=== PATIENT | male | born 1960 | race Caucasian/White ===

== ENCOUNTER 2020-03-22 14:06 | Emergency (ER) | payer OTHER ==
--- NOTE | 2020-03-22 15:18 | RAD REPORT ---
EXAM DESCRIPTION: CT - Head C Spine Mpr Wo Con - 03/22/2020 3:03 pm CLINICAL HISTORY: Head and neck injury status post fall. Head and neck pain COMPARISON: None. TECHNIQUE: Computed axial tomography of the head and cervical spine was obtained. Sagittal and coronal reconstruction was performed. All CT scans are performed using dose optimization technique as appropriate and may include automated exposure control or mA/KV adjustment according to patient size. FINDINGS: An intracranial bleed is not seen. The ventricles are normal in caliber. An extra-axial fl uid collection is not noted.Fluid within the visualized sinuses and mastoids is not seen A cervical fracture is not visualized. No dislocation is noted. Spondylosis involves the cervical spi ne IMPRESSION: No acute intracranial abnormality is seen. A cervical fracture is not visualized. If the patient continues to have symptoms to suggest intracra nial /spinal cord pathology then MRI would be recommended
--- NOTE | 2020-03-22 16:54 | RAD REPORT ---
EXAM DESCRIPTION: RAD - Foot Right 3 View - 03/22/2020 4:47 pm CLINICAL HISTORY: Right foot pain FINDINGS: No fracture or dislocation is seen Soft tissue swelling first digit. Moderate narrowing first MTP joint with small osteophytes. Erosions are not seen.
--- NOTE | 2020-03-22 17:03 | ER ---
Nurse's Notes [facility] Name: Fransisco Carcamo Age: 59 yrs Sex: Male : 1960 Arrival Date: 03/22/2020 Time: 14:10 Bed 23 Private MD: Diagnosis: Fall on same level from slipping, tripping and stumbling;Contusion of great toe without damage to nail;Superficial injury of head Presentation: 03/22 14:39 Chief complaint: Patient states: slipped and fell in the shower on . Pt c/o aa5 neck pain, upper lip pain and R big toe pain. Unknown LOC. Pt denies nausea/vomiting. Coronavirus screen: Client denies travel out of the [place] in the last 14 days. At this time, the client does not indicate any symptoms associated with coronavirus-19. Ebola Screen: Patient negative for fever greater than or equal to 101.5 degrees Fahrenheit, and additional compatible Ebola Virus Disease symptoms. Initial Sepsis Screen: Does the patient meet any 2 criteria? No. Patient's initial sepsis screen is negative. Does the patient have a suspected source of infection? No. Patient's initial sepsis screen is negative. Risk Assessment: Do you want to hurt yourself or someone else? Patient reports no desire to harm self or others. Onset of symptoms was March 2020. 14:39 Method Of Arrival: Ambulatory aa5 14:39 Acuity: ROD 4 aa5 Triage Assessment: 14:40 General: Appears uncomfortable, Behavior is calm, cooperative. Pain: Complains of pain aa5 in right first toe, neck, and upper lip Pain currently is 8 out of 10 on a pain scale. Quality of pain is described as aching, sharp, Is continuous, Aggravated by increased activity, repositioning, Noted to be resistant to movement. EENT: No signs and/or symptoms were reported regarding the EENT system. Neuro: Level of Consciousness is awake, alert, obeys commands, Oriented to person, place, time, situation. Cardiovascular: Patient's skin is warm and dry. Respiratory: Airway is patent Respiratory effort is even, unlabored, Respiratory pattern is regular, symmetrical. GI: No signs and/or symptoms were reported involving the gastrointestinal system. : No signs and/or symptoms were reported regarding the genitourinary system. Derm: Skin is pink, warm \T\ dry. Musculoskeletal: Range of motion: intact in all extremities, Swelling present in right first toe. Historical: - Allergies: 14:43 No Known Allergies; aa5 - PMHx: 14:43 Hypertension; Hyperlipidemia; MS; Coronary Artery spasms; aa5 - PSHx: 14:43 right big toe sx; aa5 - Immunization history:: Adult Immunizations unknown. - Social history:: Smoking status: Patient denies any tobacco usage or history of. Screenin:15 Abuse screen: Denies threats or abuse. Nutritional screening: No deficits noted. aa5 Tuberculosis screening: No symptoms or risk factors identified. Fall Risk Fall in past 12 months (25 points). Total Carr Fall Scale indicates Low Risk Score (25-44 pts). Fall prevention measures have been instituted. Placed close to Nursing Station. Assessment: 16:12 Reassessment: Patient is alert, oriented x 3, equal unlabored respirations, skin aa5 warm/dry/pink. 17:08 Reassessment: Pt now requesting pain medication, STUDIO ASSISTANT was notified. . aa5 17:25 Reassessment: Patient is alert, oriented x 3, equal unlabored respirations, skin aa5 warm/dry/pink. Vital Signs: 14:43 BP 125 / 93; Pulse 98; Resp 18 S; Temp 98.4(O); Pulse Ox 99% on R/A; Weight 136.08 kg aa5 (R); Height 6 ft. 4 in. (193.04 cm) (R); Pain 8/10; 14:43 Body Mass Index 36.52 (136.08 kg, 193.04 cm) aa5 ED Course: 14:10 Patient arrived in ED. ag5 14:39 Arm band placed on. aa5 14:41 Triage completed. aa5 15:03 CT Head C Spine In Process Unspecified. EDMS 15:23 Kendy Salcedo FNP-C is PHCP. snw 15:23 Prateek Cornelius MD is Attending Physician. snw 16:12 Patient has correct armband on for positive identification. Bed in low position. Call aa5 light in reach. Side rails up X 1. 16:20 Regine Hallman, MICHAEL is Primary Nurse. aa5 16:48 Foot Right 3 View XRAY In Process Unspecified. EDMS 17:25 No provider procedures requiring assistance completed. Patient did not have IV access aa5 during this emergency room visit. Administered Medications: 17:10 Drug: TORadol - Ketorolac 30 mg Route: IM; Site: right deltoid; aa5 17:25 Follow up: Response: No adverse reaction aa5 Outcome: 17:03 Discharge ordered by . snw 17:25 Discharged to home via wheelchair, with family. aa5 17:25 Condition: stable 17:25 Discharge instructions given to patient, Instructed on discharge instructions, follow up and referral plans. medication usage, Demonstrated understanding of instructions, follow-up care, medications, Prescriptions given X 2. 17:30 Patient left the ED. aa5 Signatures: Dispatcher [employer] EDKendy Pandey FNP-C PSYCHOLOGY PHYSICIAN-Regine Coughlin RN RN aa5 Nahun Adams RN RN ja1 Luis Schreiber ag5 Corrections: (The following items were deleted from the chart) 14:44 14:43 BP 125 / 93; Resp 18bpm; Spontaneous; aa5 aa5 14:44 14:43 BP 125 / 93; Pulse 98bpm; Resp 18bpm; Spontaneous; Pulse Ox 99% RA; Temp 98.4F aa5 Oral; 136.08 kg Reported; Height 6 ft. 4 in. Reported; BMI: 36.5; aa5 17:50 17:48 Patient left the ED. john paul aa5 17:56 14:20 General: Appears uncomfortable, Behavior is calm, cooperative, aa5 aa5 17:56 14:20 Pain: Complains of pain in right first toe, neck, and upper lip Pain currently is aa5 8 out of 10 on a pain scale. Quality of pain is described as aching, sharp, Is continuous, Aggravated by increased activity, repositioning, Noted to be resistant to movement, aa5 17:56 14:20 EENT: No signs and/or symptoms were reported regarding the EENT system. aa5 aa5 17:56 14:20 Neuro: Level of Consciousness is awake, alert, obeys commands, Oriented to aa5 person, place, time, situation, aa5 17:56 14:20 Cardiovascular: Patient's skin is warm and dry. aa5 aa5 17:56 14:20 Respiratory: Airway is patent Respiratory effort is even, unlabored, Respiratory aa5 pattern is regular, symmetrical, aa5 :56 14:20 GI: No signs and/or symptoms were reported involving the gastrointestinal system. aa5 aa5 :56 14:20 : No signs and/or symptoms were reported regarding the genitourinary system. aa5aa5 :56 14:20 Derm: Skin is pink, warm \T\ dry. aa5 aa5 :56 14:20 Musculoskeletal: Range of motion: intact in all extremities, Swelling present in aa5 right first toe aa5
--- NOTE | 2020-03-22 17:03 | EDPHYS ---
Physician Documentation [facility] Name: Fransisco Carcamo Age: 59 yrs Sex: Male : 1960 Arrival Date: 03/22/2020 Time: 14:10 Bed 23 Private MD: ED Physician Prateek Cornelius HPI: 03/22 17:20 This 59 yrs old Male presents to ER via Ambulatory with complaints of Neck snw Injury, Toe Injury, Lip Injury. 17:20 The patient or guardian complains of an injury, pain. The symptoms are located on the snw scalp. Onset: The symptoms/episode began/occurred acutely. Context: The problem was sustained at home, The neck injury/problem resulted from slip in bathroom, fell to tile floor. The pain does not radiate. Modifying factors: The symptoms are alleviated by nothing. the symptoms are aggravated by movement. Severity of symptoms: At their worst the symptoms were mild, moderate. The patient has not experienced similar symptoms in the past. It is unknown whether or not the patient has recently seen a physician. no LOC. Historical: - Allergies: 14:43 No Known Allergies; aa5 - PMHx: 14:43 Hypertension; Hyperlipidemia; MS; Coronary Artery spasms; aa5 - PSHx: 14:43 right big toe sx; aa5 - Immunization history:: Adult Immunizations unknown. - Social history:: Smoking status: Patient denies any tobacco usage or history of. ROS: 17:19 Constitutional: Negative for fever, chills, and weight loss, Eyes: Negative for injury, snw pain, redness, and discharge, Neck: Negative for pain and swelling, + injury, no change in ROM Cardiovascular: Negative for chest pain, palpitations, and edema, Respiratory: Negative for shortness of breath, cough, wheezing, and pleuritic chest pain, Abdomen/GI: Negative for abdominal pain, nausea, vomiting, diarrhea, and constipation, Back: Negative for injury and pain, : Negative for injury, bleeding, discharge, and swelling, MS/Extremity: Negative for injury and deformity, Neuro: Negative for headache, weakness, numbness, tingling, and seizure. 17:19 ENT: Positive for upper lip laceration. 17:19 MS/extremity: Positive for injury or acute deformity, pain, swelling, of the right first toe. Exam: 17:17 Constitutional: This is a well developed, well nourished patient who is awake, alert, snw and in no acute distress. Head/Face: Normocephalic, atraumatic. Eyes: Pupils equal round and reactive to light, extra-ocular motions intact. Lids and lashes normal. Conjunctiva and sclera are non-icteric and not injected. Cornea within normal limits. Periorbital areas with no swelling, redness, or edema. Neck: Trachea midline, no thyromegaly or masses palpated, and no cervical lymphadenopathy. Supple, full range of motion without nuchal rigidity, or vertebral point tenderness. No Meningismus. Chest/axilla: Normal chest wall appearance and motion. Nontender with no deformity. No lesions are appreciated. Cardiovascular: Regular rate and rhythm with a normal S1 and S2. No gallops, murmurs, or rubs. Normal PMI, no JVD. No pulse deficits. Respiratory: Lungs have equal breath sounds bilaterally, clear to auscultation and percussion. No rales, rhonchi or wheezes noted. No increased work of breathing, no retractions or nasal flaring. Abdomen/GI: Soft, non-tender, with normal bowel sounds. No distension or tympany. No guarding or rebound. No evidence of tenderness throughout. Back: No spinal tenderness. No costovertebral tenderness. Full range of motion. Skin: Warm, dry with normal turgor. Normal color with no rashes, no lesions, and no evidence of cellulitis. Neuro: Awake and alert, GCS 15, oriented to person, place, time, and situation. Cranial nerves II-XII grossly intact. Motor strength 5/5 in all extremities. Sensory grossly intact. Cerebellar exam normal. Normal gait. Psych: Awake, alert, with orientation to person, place and time. Behavior, mood, and affect are within normal limits. 17:17 Musculoskeletal/extremity: Extremities: grossly normal except: noted in the right first toe: contusion, ecchymosis, tenderness. 17:17 ENT: Mouth: Lips: lacerated, approximately 2 cm(s), well approximated, Oral mucosa: snw normal, Gums: normal with healthy appearance. Vital Signs: 14:43 BP 125 / 93; Pulse 98; Resp 18 S; Temp 98.4(O); Pulse Ox 99% on R/A; Weight 136.08 kg aa5 (R); Height 6 ft. 4 in. (193.04 cm) (R); Pain 8/10; 14:43 Body Mass Index 36.52 (136.08 kg, 193.04 cm) aa5 MDM: 16:24 Patient medically screened. snw 17:19 Data reviewed: vital signs, nurses notes. Data interpreted: Pulse oximetry: on room air snw is 99 %. Interpretation: normal. Counseling: I had a detailed discussion with the patient and/or guardian regarding: the historical points, exam findings, and any diagnostic results supporting the discharge/admit diagnosis, radiology results, the need for outpatient follow up, to return to the emergency department if symptoms worsen or persist or if there are any questions or concerns that arise at home. Special discussion: I have referred the patient to see his PCP for further evaluation of high blood pressure. Based on the history and exam findings, there is no indication for further emergent testing or inpatient evaluation. I discussed with the patient/guardian the need to see the primary care provider for further evaluation of the symptoms. 03/22 14:44 Order name: CT Head C Spine; Complete Time: 15:22 aa5 03/22 14:52 Order name: Foot Right 3 View XRAY; Complete Time: 16:57 snw Administered Medications: 17:10 Drug: TORadol - Ketorolac 30 mg Route: IM; Site: right deltoid; aa5 17:25 Follow up: Response: No adverse reaction aa5 Disposition: 03/22/20 17:03 Discharged to Home. Impression: Fall on same level from slipping, tripping and stumbling, Contusion of great toe without damage to nail, Superficial injury of head. - Condition is Stable. - Discharge Instructions: Cervical Radiculopathy, Foot Contusion, Head Injury, Adult, Fall Prevention in the Home. - Prescriptions for Ultram 50 mg Oral Tablet - take 1 tablet by ORAL route every 6 hours As needed; 12 tablet. promethazine 25 mg Oral Tablet - take 1 tablet by ORAL route every 6 hours As needed; 20 tablet. - Medication Reconciliation Form, Thank You Letter, Antibiotic Education, Prescription Opioid Use form. - Follow up: Emergency Department; When: As needed; Reason: Worsening of condition. Follow up: Private Physician; When: 2 - 3 days; Reason: Recheck today's complaints, Continuance of care, Re-evaluation by your physician. Addendum: 03/24/2020 07:00 Co-signature as Attending Physician, Prateek Cornelius MD I agree with the assessment and k dr plan of care. Signatures: Dispatcher [employer] EDMS Prateek Cornelius MD MD [facility] Kendy Salcedo, SUPERVISOR STOCK RANCH-C SUPERVISOR STOCK RANCH-Csnw Regine Hallman, RN RN aa5 Nahun Adams RN RN ja1 Corrections: (The following items were deleted from the chart) 03/22 17:48 17:03 03/22/2020 17:03 Discharged to Home. Impression: Fall on same level from ja1 slipping, tripping and stumbling; Contusion of great toe without damage to nail; Superficial injury of head. Condition is Stable. Forms are Medication Reconciliation Form, Thank You Letter, Antibiotic Education, Prescription Opioid Use. Follow up: Emergency Department; When: As needed; Reason: Worsening of condition. Follow up: Private Physician; When: 2 - 3 days; Reason: Recheck today's complaints, Continuance of care, Re-evaluation by your physician. snw
[2020-03-22] MEDS ORDERED: KETOROLAC 30 MG/ML INJ ONE (17:23)
[2020-03-22 18:03] VITALS: BP 125/93; TEMP 98.4; O2SAT 99
== END 2020-03-22 17:48 | disposition home or self-care (01) ==
LOC: ER 14:06
DX: S00.80XA Unspecified superficial injury of other part of head, initial encounter (principal); W01.198A Fall on same level from slipping, tripping and stumbling with subsequent striking against other object, initial encounter; Y93.89 Activity, other specified; Y92.009 Unspecified place in unspecified non-institutional (private) residence as the place of occurrence of the external cause; I10 Essential (primary) hypertension
CPT/HCPCS: 70450; 72125; 96372; 99283